=== PATIENT | female | born 1940 | race Caucasian/White ===

== ENCOUNTER 2021-11-15 11:25 | Day surgery (SDC) | payer OTHER, SELFPAY ==
--- NOTE | 2021-11-15 | PATH_ITS ---
[facility] Accession Number: [id number] . 01 Material submitted: . PART A: colon - ASCENDING COLON POLYP PART B: rectum - RECTUM POLYP . 01 Diagnosis: A. Ascending Colon, Polyp, Biopsy: Colonic mucosa with no diagnostic abnormality, consistent with polypoid redundancy. Additional levels were examined. Negative for dysplasia and malignancy. . B. Rectum, Polyp, Biopsy: Tubular adenoma. . . . . . [facility] 11/18/2021 1358 Local . 01 Electronically signed: . Sylvia Love MD, Pathologist NPI- [id number] . 01 Gross description: . A. Received in formalin in a specimen container, labeled with the patient's name, medical record number, and ascending colon polyp is a single piece of tissue fragment that measures 0.2 cm in diameter. The specimen is entirely submitted in cassette A1. B. Received in formalin in a specimen container, labeled with the patient's name, medical record number, and rectum polyp is an aggregate of two pieces of tissue fragments that measure 0.5 x 0.4 x 0.2 cm. The specimen is entirely submitted in cassette B1. ([id number]) /FRLisa 11/17/2021 0829 Local . 01 Pathologist provided ICD-10: D12.8 . 01 CPT . 954505, 896222 Specimen Comment: A courtesy copy of this report has been sent to [phone] Performed at: [address] [id number] MD Delvin Luke MD Phone: [phone]
[2021-11-15 12:11] VITALS: BP 156/98; PULSE 85; RESP 16; TEMP 36.2; O2SAT 99; BMI 32.0
[2021-11-15 12:51] LABS: COVID19 -Nasal RAPID Negative (Negative)
--- NOTE | 2021-11-15 13:19 | P.HP_ITS ---
History of Present Illness History of Present Illness Date Patient Seen: 11/15/21 Time Patient Seen: 13:19 Chief complaint: SDC Narrative: The patient presents for colonoscopy following a positive Cologuard test.. Previous colonoscopy 10 years ago normal. No personal or family history of colon cancer. On further history denies any recent gastrointestinal symptoms. No nausea, vomiting, abdominal pain, loss of appetite, unexplained weight loss, change in bowel habits, diarrhea, constipation, melena, hematochezia, or bright red blood per rectum. Patient History Family & Social History Social History: household members spouse Tobacco & Substance use: Smoking Status Never smoker alcohol intake never Substance Use Type does not use Exam Vital Signs (past 8 hours): - 11/15/21 12:11 Temperature 97.2 F L Pulse Rate 85 Respiratory Rate 16 Blood Pressure 156/98 H Pulse Oximetry 99 Oxygen Delivery Method Room Air Oxygen Delivery Method Room Air Narrative Exam Narrative: General adult woman alert oriented no acute distress Abdomen soft nontender nondistended Extremities warm well perfused Objective Labs Labs: Laboratory Results - last 24 hr 11/15/21 12:46 SARS-CoV-2 (PCR) Negative Assessment & Plan Assessment & Plan narrative: The patient requires colorectal screening and colonoscopy is recommended. Technical details were discussed. Risks, benefits, alternatives explained. Risks including but not limited to myocardial infarction, aspiration, bleeding, pain, missed lesion, incomplete examination, need for further radiographic studies, colonic perforation, and need for major abdominal surgery were di scussed. All questions were answered to their satisfaction, and they are in agreement with this plan. Time Spent With Patient Critical Care time: I spent a total of [] minutes of critical care time on this patient's care today; this time is exclusive of procedural time.
[2021-11-15] MEDS: fentaNYL 250 MCG/5 ML INJ 150 MCG IV (13:43)
[2021-11-15] MEDS: MIDAZOLAM 5 MG/5 ML VIAL IV (13:43)
--- NOTE | 2021-11-15 13:56 | PM.OP.COLON ---
Operative Date/Time/Diagnoses Date of procedure: 11/15/21 Time of procedure: 13:56 Pre-op diagnosis: Positive Cologuard Post-op diagnosis: other (Colonic polyps) Procedure & Clinicians Study performed: Colonoscopy and polypectomy Same procedure as scheduled: Yes Indications: Positive Cologuard Surgeon: Noman Cornell Procedure Notes Procedure in detail: Medications: Conscious sedation using 5mg IV midazolam and 150mcg IV of fentanyl The history and physical was performed/updated and the patient is ASA class is 2. The procedure was discussed in detail with the patient. Potential risks complications including infection, bleeding, missed diagnosis, perforation, need for surgery, and were explained. Their questions were answered and informed consent was obtained. Patient was brought to the procedure room and placed standard monitoring equipment. The patient's vital signs were monitored continuously throughout the entire procedure. Prior to starting time-out was performed. The patient was placed in the left lateral recumbent position. Procedural sedation was administered. Examination began with a thorough inspection of the perianal area there was no evidence of fissures, fistulae, external hemorrhoids or cutaneous malignancy. The colonoscopy scope was then placed into the anal canal and was advanced to the cecum, which was identified by the ileocecal valve, the appendiceal orifice and the confluence of the taenia. The scope was then slowly withdrawn examining colon thoroughly in all directions, irrigating it of any residual stool. FINDINGS 1. Ascending colon. 5 mm polyp removed with biopsy forceps. 2. Distal rectum 5 mm polyp removed with biopsy forceps. 3. Internal hemorrhoids The patient tolerated the procedure well. They will be discharged once criteria are met. The prep was of good/excellent quality. The withdrawl time [id number]. The sedation time was 22 minutes. Specimen(s): other (Ascending colon and rectum polyp) Impression: Colonic polyps Post-procedure Recommendations: Colonoscopy in 5 years Plan for aftercare: Will notify with pathology Disposition: same day surgery
[2021-11-15 13:59] VITALS: BP 117/73; PULSE 78; RESP 16; TEMP 37; O2SAT 95
[2021-11-15] MEDS: LACTATED RINGERS 1,000 ML 200 ML IV (13:59)
[2021-11-15 14:04] VITALS: BP 120/75; PULSE 70; RESP 20; O2SAT 95
[2021-11-15 14:09] VITALS: BP 121/80; PULSE 74; RESP 17; O2SAT 96
[2021-11-15 14:21] VITALS: BP 120/75; PULSE 68; RESP 18; TEMP 36.2; O2SAT 98
--- NOTE | 2021-11-15 14:24 | SUR.PHASEI ---
IVF infusing on arrival to PACU. Documented amt includes pre-op, during procedure, and recovery.
--- NOTE | 2021-11-15 15:04 | SUR.PREOP ---
Pt meds, allergies, and preferred pharmacy not saved d/t computer malfunction- IT aware for work order. Unable to remember pt's reports for this section.
== END 2021-11-15 14:50 | disposition home or self-care (01) ==
PROVIDERS: PCP Registered Nurse; Referring Provider Surgery; Visit Provider Surgery
PROC: 0DJD8ZZ Inspection of Lower Intestinal Tract, Via Natural or Artificial Opening Endoscopic (ICD-10-PCS; CPT 45378; principal; 2021-11-15 13:00)
DX: R19.5 Other fecal abnormalities (principal); Z20.822 Contact with and (suspected) exposure to COVID-19; K64.8 Other hemorrhoids; D12.8 Benign neoplasm of rectum
CPT/HCPCS: 45380; 87635; 99152; C9803; J2250; J3010